=== PATIENT | male | born 1980 | race Caucasian/White ===

== ENCOUNTER 2016-12-11 19:47 | Emergency (ER) | payer OTHER ==
[~2016-12-11] VITALS: Ht 177.8 cm; Wt 99.0 kg
[2016-12-11] MEDS ORDERED: SKELAXIN800 MG PO (21:26)
[2016-12-11] MEDS ORDERED: NORCO 5/3251 TABLET PO (21:26)
[2016-12-11 21:50] VITALS: BP 130/81
== END 2016-12-11 21:55 | disposition home or self-care (01) ==
LOC: EME 19:47
DX: S39.012A Strain of muscle, fascia and tendon of lower back, initial encounter (principal); W10.9XXA Fall (on) (from) unspecified stairs and steps, initial encounter
CPT/HCPCS: 72100; 99281; 99283; J1885